=== PATIENT | male | born 2000 | race African-American/Black ===

== ENCOUNTER 2019-11-28 11:09 | Outpatient (REF) | payer OTHER, SELFPAY | END 2019-11-28 11:10 | disposition home or self-care (01) | LOC: HO.LAB 11:09 | PROVIDERS: Visit Provider Internal Medicine | DX: Z20.828 Contact with and (suspected) exposure to other viral communicable diseases (principal) | CPT/HCPCS: 87635 ==

== ENCOUNTER 2019-12-05 12:57 | Outpatient (REF) | payer OTHER, SELFPAY | END 2019-12-05 12:58 | disposition home or self-care (01) | LOC: HO.LAB 12:57 | PROVIDERS: Visit Provider Internal Medicine | DX: Z20.828 Contact with and (suspected) exposure to other viral communicable diseases (principal) | CPT/HCPCS: 87635 ==

== ENCOUNTER 2022-11-16 10:32 | Emergency (ER) | payer MEDICAID, SELFPAY ==
[2022-11-16 10:37] VITALS: BP 134/88; PULSE 82; RESP 18; TEMP 36.8; O2SAT 100; BMI 21.1
--- NOTE | 2022-11-16 10:59 | ED.NAVMDI ---
HPI - Nausea/Vomiting/Diarrhea General Chief complaint: Nausea/Vomiting/Diarrhea Stated complaint: nausea Time Seen by Provider: 11/16/22 10:59 Source: patient Mode of arrival: ambulatory Limitations: no limitations History of Present Illness HPI Narrative: 21 yo male otherwise healthy here with n/v/d since last [place] but no travel or sick contacts - now with c/o waking up and having R sided low back pain worse with movements. He denies fevers or drug abuse. He states he has the pain when he moves in the back - no hx of kidney stones. MD elicited complaint: nausea, vomiting, diarrhea and flank pain Onset (ago): day(s) (last night) Description of vomiting: food contents and watery Description of diarrhea: watery Associated nausea: Yes Associated abdominal pain: No Location of pain: R flank Pain consistency: constant Quality: aching Exacerbating factors: movement Relieving factors: none Associated symptoms: loss of appetite, malaise and nausea/vomiting Related Data Previous Rx's Medication Instructions Recorded ondansetron 4 mg disintegrating 4 mg PO Q8H PRN nausea and 11/16/22 tablet vomiting #20 tabs Allergies Allergy/AdvReac Type Severity Reaction Status Date / Time No Known Allergies Allergy Verified 11/16/22 10:40 [No Known Allergies*] Review of Systems Review of Systems: Constitutional : No Weight loss, No Fever, No Chills ENT/Mouth : No sore throat, No Rhinorrhea Eyes: No Swelling, No Redness Cardiovascular : No Chest Pain, No SOB, NoEdema Respiratory : No Cough, No Sputum, No Wheezing Gastrointestinal : Positive Nausea, Positive Vomiting, positive Diarrhea, no abdominal Pain, No Hematochezia, No Melena Genitourinary : No Dysuria, No Urinary Frequency, No Hematuria, No Urgency Musculoskeletal : No joint pain, No Myalgias, No Joint Swelling, pos back pain Skin : No Skin Lesions, No rash Neuro : No Weakness, No Numbness, No Dizziness, No Headache Psych : No Anxiety/Panic, No Depression Heme/Lymph: No Bruising, No Lymphadenopathy Endocrine : No Polyuria, No Polydipsia All other systems reviewed and are negative. Gastrointestinal: Gastrointestinal: Reports nausea PMFSH Past Medical History Attestation statement: The following information was validated with the patient. Medical History No pertinent past medical history Social History Social History (Updated 11/16/22 @ 11:22 by My Brizuela DO) Patient Tobacco Use Status: Never used Tobacco Use of substances other than those prescribed or required for medical reasons: No Advance Directives: No Advance Directives Information Provided: No Physical Exam Vital Signs: Vital Signs: Last Vital Signs Temp 98.3 F 11/16/22 11:00 Pulse 82 11/16/22 11:00 Resp 18 11/16/22 11:00 BP 119/81 11/16/22 11:00 Pulse Ox 98 11/16/22 11:00 O2 Del Method Room Air 11/16/22 11:00 BMI result Body Mass Index 21.1 Appearance: Alert. Oriented X3. No acute distress. Anxious Eyes: Pupils equal, round and reactive to light. ENT: Pharynx normal. Neck: Normal inspection. Neck supple. CVS: Normal heart rate and rhythm. Pulses normal. Respiratory: No respiratory distress. Breath sounds normal. Abdomen: Soft and nontender. Back: ttp along R lower back no CVA ttp Skin: Skin warm and dry. Normal skin color. Normal skin turgor. Extremities: No lower extremity edema. No calf ttp Neuro: Oriented X 3. No motor deficit. No sensory deficit. Medications Administered Discontinued Medications Generic Name Dose Route Start Last Admin Trade Name Freq PRN Reason Stop Dose Admin Sodium Chloride 1,000 mls @ 999 mls/hr 11/16/22 11:15 11/16/22 11:13 Ns IVCONT 11/16/22 12:15 999 mls/hr .Q1H1M KARLIE Administration Ketorolac Tromethamine 15 mg 11/16/22 11:03 11/16/22 11:18 Ketorolac Tromethamine 15 Mg/Ml Vial IVPUSH 11/16/22 11:04 15 mg ONCE ONE Administration Ondansetron HCl 4 mg 11/16/22 11:03 11/16/22 11:18 Ondansetron Hcl 4 Mg/2 Ml Vial IVPUSH 11/16/22 11:04 4 mg ONCE ONE Administration Medical Decision Making Medical Decision Making MDM Narrative: 21 yo male with no sig PMH [place] developed n/v/d and then woke up with R low back pain that is worse with movements he does not use drugs, has benign abdomen and is not toxic appearing. He has no hx of stones. At this time suspect viral syndrome vs food toxicity will obtain basic labs, hydrate, UA and viral panel. I do not suspect a stone has no history and pain is reproduceable with movements and is low back not flank - he does not use drugs I do not suspect abscess. He has no pain to suggest appendicitis/GB infection Differential Diagnosis Differential Diagnoses: The differential diagnosis associated with the presentation includes viral syndrome, MSK strain Admission/Observation Consideration of admission/observation: Escalation of care including admission/observation considered feels better can tolerate PO stable for DC Lab Data [facility] Lab Attestation statement: I reviewed the patient's lab results. 11/16/22 11:11 11/16/22 11:11 Labs: Lab Results 11/16/22 11/16/22 Range/Units 11:11 13:05 WBC 9.0 (4.8-10.8) X10*3/uL RBC 5.41 (4.60-5.80) X10*6/uL Hgb 16.4 (14.0-18.0) g/dl Hct 46.6 (42.0-52.0) % MCV 86.1 (80.0-98.0) fL MCH 30.3 (27.0-33.0) pg MCHC 35.2 (31.0-36.0) g/dl RDW 12.0 (11.0-16.0) % Plt Count 244 (160-400) X10*3/uL MPV 9.6 (9.4-12.4) fL Immature Gran % (Auto) 0.2 (0.0-0.4) % Neut % (Auto) 80.1 H (45-73) % Lymph % (Auto) 8.8 L (20-40) % [place] % (Auto) 10.0 (2-11) % Eos % (Auto) 0.6 (0-4) % Baso % (Auto) 0.3 (0-2) % Lymph # (Auto) 0.8 L (1.2-4.9) X10*3/uL [place] # (Auto) 0.9 (0.1-1.2) X10*3/uL Eos # (Auto) 0.1 (0.0-0.4) X10*3/uL Baso # (Auto) 0.0 (0.0-0.2) X10*3/uL Abs Immat Gran (auto) 0.02 (0.00-0.03) X10*3/uL Absolute Neuts (auto) 7.2 (2.0-8.3) x10*3/uL Absolute Nucleated RBC 0.000 (0.0-0.012) X10*3/uL Nucleated RBC % (auto) 0.0 (0.0-0.2) /100WBC Sodium 141 (135-145) mmol/L Potassium 3.7 (3.3-5.1) mmol/L Chloride 104 (96-108) mmol/L Carbon Dioxide 26 (22-29) mmol/L Anion Gap 15 (12-20) BUN 11 (9-16) mg/dL Creatinine 0.98 (0.5-1.4) mg/dL Estim Creat Clear Calc 117.8 Estimated GFR > 60 Random Glucose 106 (60-115) mg/dL Calcium 10.6 H (8.4-10.2) mg/dL Magnesium 1.9 (1.6-2.6) mg/dL Total Bilirubin 0.9 (0.0-1.0) mg/dL Direct Bilirubin 0.3 (0.0-0.5) mg/dL AST 16 (5-37) U/L ALT 11 (0-40) U/L Alkaline Phosphatase 77 (39-117) U/L Total Protein 8.4 H (6.5-8.0) g/dL Albumin 5.0 (3.5-5.0) g/dL Lipase 10 (8-78) U/L Urine Color Dark Yellow Urine Appearance Clear Urine pH 6.0 (5.0-9.0) Ur Specific [place] >= 1.030 H (1.005-1.025) Urine Protein Trace (Neg-Trace) mg/dL Urine Glucose (UA) Negative (Negative) mg/dL Urine Ketones 40 (Negative) mg/dL Urine Blood Negative (Negative) Urine Nitrite Negative (Negative) Ur Leukocyte Esterase Trace H (Negative) Urine RBC 0-2 (0-2) /HPF Urine WBC 0-5 (0-5) /HPF Ur Squamous Epith Cells 0-2 (0-2) /HPF Urine Bacteria None Seen (None Seen) Hyaline Casts 0-2 (0-2) /LPF COVID-19 ([place]) Negative (Negative) COVID-19 Clin Com See Note Influenza Type A ([place]) Negative (Negative) Influenza Type B ([place]) Negative (Negative) Influenza A & B Note See Note Tests considered The following testing was considered but not selected: CT scan but labs reassuring and feels better stable for DC Prescription Management I considered prescription management with: Other (zofran) Discharge Plan Discharge Clinical Impression: Vomiting Qualifiers: Vomiting type: unspecified Nausea presence: with nausea Qualified Code(s): R11.2 - Nausea with vomiting, unspecified Diarrhea Qualifiers: Diarrhea type: unspecified type Qualified Code(s): R19.7 - Diarrhea, unspecified Patient Disposition: Home, Self-Care Instructions: Acute Nausea and Vomiting (ED), Acute Diarrhea (ED) Additional Instructions: eat a bland diet and advance diet slowly over 48 hours. stay hydrated - return for fevers, worsening pain, inability to eat or drink black or bloody stools negative flu and negative COVID Prescriptions: New ondansetron 4 mg tablet,disintegrating 4 mg PO Q8H PRN (Reason: nausea and vomiting) Qty: 20 0RF Stand Alone Forms: Work/School Release
[2022-11-16 11:00] VITALS: BP 119/81; PULSE 82; RESP 18; TEMP 36.8; O2SAT 98
--- NOTE | 2022-11-16 11:04 | PC.NURSE ---
Patient reports n/v/d that started tue evening. Reports 87/10 lower back pain that started this morning. Patient reports had had poor appetite over the last few days. 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 Denies headache or sob
[2022-11-16] MEDS: 0.9 % Sodium Chloride 1,000 ML 999 ML IVCONT (11:13)
[2022-11-16 11:17] LABS: MANUAL DIFF FLAG NO
[2022-11-16] MEDS: ondansetron HCL 4 MG/2 ML VIAL IVPUSH (11:18)
[2022-11-16] MEDS: Ketorolac Tromethamine 15 MG/ML VIAL IVPUSH (11:18)
[2022-11-16 11:30] LABS: Basophils Percent Auto 0.3 % (0-2); Eosinophils Absolute Auto 0.1 X10*3/uL (0.0-0.4); Eosinophils Percent Auto 0.6 % (0-4); Hematocrit 46.6 % (42.0-52.0); Hemoglobin 16.4 g/dl (14.0-18.0); Imm Gran Abs Auto 0.02 X10*3/uL (0.00-0.03); Imm Gran Pct Auto 0.2 % (0.0-0.4); Lymphocytes Absolute Auto 0.8 X10*3/uL (1.2-4.9); Lymphocytes Percent Auto 8.8 % (20-40); Mean Corpuscular HGB Conc 35.2 g/dl (31.0-36.0); Mean Corpuscular Hemoglobin 30.3 pg (27.0-33.0); Mean Corpuscular Volume 86.1 fL (80.0-98.0); Mean Platelet Volume 9.6 fL (9.4-12.4); Monocytes Absolute Auto 0.9 X10*3/uL (0.1-1.2); Neutrophils Absolute Auto 7.2 x10*3/uL (2.0-8.3); Neutrophils Percent Auto 80.1 % (45-73); Platelet Count 244 X10*3/uL (160-400); Red Blood Count 5.41 X10*6/uL (4.60-5.80)
[2022-11-16 11:34] LABS: Alanine Aminotransferase 11 U/L (0-40); Alkaline Phosphatase 77 U/L (39-117); Anion Gap 15 (12-20); Aspartate Amino Transferase 16 U/L (5-37); Bilirubin Direct 0.3 mg/dL (0.0-0.5); Bilirubin Total 0.9 mg/dL (0.0-1.0); Blood Urea Nitrogen 11 mg/dL (9-16); Calcium 10.6 mg/dL (8.4-10.2); Carbon Dioxide 26 mmol/L (22-29); Chloride 104 mmol/L (96-108); Creatinine Clr Calc Pharmacy 117.8; Estimated Glomerular Filt Rate > 60; Glucose Random 106 mg/dL (60-115); Lipase 10 U/L (8-78); Magnesium 1.9 mg/dL (1.6-2.6); Potassium 3.7 mmol/L (3.3-5.1); Sodium 141 mmol/L (135-145); Total Protein 8.4 g/dL (6.5-8.0)
[2022-11-16 11:38] LABS: COVID-19 Test Negative (Negative); IDNOW Serial# 9DB6401D
[2022-11-16 11:40] LABS: IDNOW Serial# 55D5AD1C; Influenza A Negative (Negative); Influenza B2 Negative (Negative)
[2022-11-16 13:13] LABS: Appearance Urine Clear; Color Urine Dark Yellow; Glucose Urine UA Negative (Negative); Leukocyte Esterase Urine Trace (Negative); Nitrite Urine Negative (Negative); Specific Gravity - Urine >= 1.030 (1.005-1.025); UMIC TRIGGER UACC YES; Urine Blood Negative (Negative); Urine Ketones 40 mg/dL (Negative); Urine Protein Trace mg/dL (Neg-Trace)
[2022-11-16 13:17] LABS: Bacteria Urine None Seen (None Seen); Hyaline Casts Urine 0-2 /LPF (0-2); RBC Urine 0-2 /HPF (0-2); Squamous Epithelial Cell Urine 0-2 /HPF (0-2); WBC Urine 0-5 /HPF (0-5)
--- NOTE | 2022-11-16 13:29 | PC.NURSE ---
Discharge plan reviewed with patient who verbalized understanding
== END 2022-11-16 13:30 | disposition home or self-care (01) ==
PROVIDERS: Emergency Provider Emergency Medicine
DX: R11.2 Nausea with vomiting, unspecified (principal); R19.7 Diarrhea, unspecified; Z20.822 Contact with and (suspected) exposure to COVID-19
CPT/HCPCS: 80048; 80076; 81001; 83690; 83735; 85025; 87502; 87635; 96361; 96374; 96375; 99284; J1885; J2405